=== PATIENT | female | born 1955 | race Caucasian/White ===

== ENCOUNTER 2018-05-03 21:23 | Inpatient (IN) | payer OTHER ==
[2018-05-03] MEDS: FUROSEMIDE 40 MG INJ IV (22:09)
[2018-05-03] MEDS: NITROGLYCERIN 2% 1 GM OINT PKT TD (22:10)
[2018-05-03] MEDS: ASPIRIN 81 MG TAB PO (22:10)
[2018-05-03] MEDS ORDERED: ONDANSETRON 4 MG INJ (22:13)
[2018-05-03 22:16] LABS: ADD MAN DIFF? NO
[2018-05-03 22:22] LABS: BASOPHILS % 0.3 % (0.0-2.0); EOSINOPHILS # 0.1 10^3/ul (0.0-0.5); EOSINOPHILS % 0.4 % (0.0-7.0); HEMATOCRIT 41.7 % (37.0-47.0); HEMOGLOBIN 12.6 g/dl (12.0-16.0); LYMPHOCYTES # 1.6 10^3/ul (0.8-2.9); LYMPHOCYTES % 10.7 % (15.0-51.0); MEAN CORPUSCULAR HEMOGLOBIN 19.9 pg (29.0-33.0); MEAN CORPUSCULAR HGB CONC 30.2 g/dl (32.0-37.0); MEAN CORPUSCULAR VOLUME 65.9 fl (82.0-101.0); MEAN PLATELET VOLUME 10.8 fl (7.4-10.4); MONOCYTE # 0.5 10^3/ul (0.3-0.9); MONOCYTES % 3.3 % (0.0-11.0); NEUTROPHIL # 13.1 10^3/ul (1.6-7.5); NEUTROPHILS % 84.9 % (39.0-77.0); PLATELET COUNT 426 10^3/UL (140-415); RED BLOOD COUNT 6.33 10^6/ul (4.20-5.40); RED CELL DISTRIBUTION WIDTH 17.3 % (11.5-14.5)
[2018-05-03 22:22] LABS: WHITE BLOOD COUNT 15.4 10^3/ul (4.8-10.8)
[2018-05-03 22:38] LABS: ANION GAP 12 (5-13); BLOOD UREA NITROGEN 60 mg/dl (7-20); CARBON DIOXIDE 20 mmol/L (21-31); CHLORIDE 104 mmol/L (97-110); Estimated GFR 30 mL/min (>60); GLUCOSE 321 mg/dl (70-220); SODIUM 136 mmol/L (135-144)
[2018-05-03 22:48] LABS: B-TYPE NATRIURETIC PEPTIDE 4040 PG/ML (0-125)
[2018-05-03 22:59] LABS: POTASSIUM 6.3 mmol/L (3.5-5.1); TROPONIN-I 0.612 ng/ml (0.000-0.120)
[2018-05-03 23:57] LABS: AADO2 Arterial 242.9 mmHg (7.0-24.0); Allen Test ACCEPTAB; Arterial Base Excess -10.3 mmol/L (-3.0-3); Arterial Blood Gas Oxygen Sat 94.1 mmHG (95.0-98.0); Arterial COHb 0.5 % (0.0-3.0); Arterial Fraction of Oxyhgb 93.6 % (93.0-99.0); Arterial HCO3 15.6 mmol/L (22.0-26.0); Arterial MetHb 0 % (0.0-1.5); Blood Gas IEPAP 15/5; MODE MASK - BIPAP; Site Left Radial
[2018-05-04] MEDS: CEFTRIAXONE 1 GM/50 ML (PMX) 50 ML IVPB (00:58)
[2018-05-04] MEDS: CALCIUM GLUCONATE 10% 1 GM in DEXTROSE 5% 100 ML IVPB (01:39)
[2018-05-04] MEDS ORDERED: ACETAMINOPHEN 325 MG TAB PO ×2 (02:30→03:00)
[2018-05-04] MEDS: AZITHROMYCIN 500MG/NS (PMX) 250 ML IV (02:30)
[2018-05-04] MEDS: ONDANSETRON 4 MG INJ IV (02:54)
[2018-05-04] MEDS ORDERED: ENOXAPARIN 40 MG/0.4 ML SYG SC (03:00)
[2018-05-04] MEDS ORDERED: NACL 0.9% 3 ML SYG IV (03:00)
[2018-05-04] MEDS ORDERED: morphine 2 MG INJ IV (03:00)
[2018-05-04] MEDS ORDERED: ONDANSETRON 4 MG INJ IV (03:00)
[2018-05-04] MEDS ORDERED: DOCUSATE SODIUM 100 MG CAP PO (03:00)
[2018-05-04] MEDS ORDERED: NITROGLYCERIN (SL) 0.4 MG TAB SL (03:00)
[2018-05-04] MEDS ORDERED: GLUCOSE GEL 15 GRAM TUBE BUCCAL (03:30)
[2018-05-04] MEDS ORDERED: GLUCOSE GEL 15 GRAM TUBE PO ×2 (03:30)
[2018-05-04] MEDS ORDERED: DEXTROSE 50% 50 ML SYRINGE IV ×2 (03:30)
[2018-05-04] MEDS ORDERED: GLUCAGON 1 MG INJ IM (03:30)
[2018-05-04] MEDS: ALBUTEROL/IPRATROPIUM (NEB) 3 ML AMP HHN ×5 (04:22→20:30)
[2018-05-04] MEDS: IPRATROPIUM (NEB) 0.5 MG/2.5 ML AMP NEB (04:23)
[2018-05-04] MEDS: NA BICARBONATE 8.4% 50 ML SYG IV ×2 (05:27→08:46)
[2018-05-04] MEDS: ENOXAPARIN 80 MG/0.8 ML SYG SC ×2 (05:28→20:26)
[2018-05-04 05:47] LABS: ADD MAN DIFF? NO
[2018-05-04 05:48] LABS: BASOPHILS % 0.2 % (0.0-2.0); EOSINOPHILS % 0.1 % (0.0-7.0); HEMATOCRIT 38.7 % (37.0-47.0); HEMOGLOBIN 11.9 g/dl (12.0-16.0); LYMPHOCYTES # 1.2 10^3/ul (0.8-2.9); LYMPHOCYTES % 6.3 % (15.0-51.0); MEAN CORPUSCULAR HEMOGLOBIN 20.1 pg (29.0-33.0); MEAN CORPUSCULAR HGB CONC 30.7 g/dl (32.0-37.0); MEAN CORPUSCULAR VOLUME 65.4 fl (82.0-101.0); MEAN PLATELET VOLUME 10.9 fl (7.4-10.4); MONOCYTE # 0.5 10^3/ul (0.3-0.9); MONOCYTES % 2.5 % (0.0-11.0); NEUTROPHIL # 17.8 10^3/ul (1.6-7.5); NEUTROPHILS % 90.3 % (39.0-77.0); PLATELET COUNT 400 10^3/UL (140-415); RED BLOOD COUNT 5.92 10^6/ul (4.20-5.40); RED CELL DISTRIBUTION WIDTH 17.1 % (11.5-14.5)
[2018-05-04 05:48] LABS: WHITE BLOOD COUNT 19.6 10^3/ul (4.8-10.8)
[2018-05-04 06:22] LABS: CK INDEX 6.6; CREATINE KINASE 574 IU/L (23-200)
[2018-05-04 06:24] LABS: ALANINE AMINOTRANSFERASE 20 IU/L (13-69); ALBUMIN 3.7 g/dl (3.3-4.9); ALBUMIN/GLOBULIN RATIO 1.12; ALKALINE PHOSPHATASE 74 IU/L (42-121); ANION GAP 10 (5-13); ASPARTATE AMINO TRANSFERASE 89 IU/L (15-46); BILIRUBIN,INDIRECT 0.3 mg/dl (0-1.1); BILIRUBIN,TOTAL 0.3 mg/dl (0.2-1.3); BLOOD UREA NITROGEN 63 mg/dl (7-20); CALCIUM 8.8 mg/dl (8.4-10.2); CARBON DIOXIDE 23 mmol/L (21-31); CHLORIDE 108 mmol/L (97-110); CREATININE 1.69 mg/dl (0.44-1.00); Estimated GFR 30 mL/min (>60); GLUCOSE 259 mg/dl (70-220); SODIUM 141 mmol/L (135-144)
[2018-05-04 07:00] LABS: POTASSIUM 6.1 mmol/L (3.5-5.1)
[2018-05-04 07:25] LABS: LACTIC ACID 1.3 mmol/L (0.5-2.0)
[2018-05-04] MEDS: NA POLYST SULFON 15 GM/60 ML BTL PO (08:00)
[2018-05-04] MEDS: INSULIN ASPART [NOVOLOG] 3 ML PEN SC ×5 (08:00→20:26)
[2018-05-04] MEDS: CLOPIDOGREL 75 MG TAB PO (08:46)
[2018-05-04] MEDS: ASPIRIN 81 MG TAB PO (08:46)
[2018-05-04] MEDS: ATORVASTATIN 80 MG TAB PO (08:46)
[2018-05-04 08:47] LABS: IONIZED CALCIUM 1.2 mmol/L (1.1-1.4)
[2018-05-04] MEDS: METOPROLOL 25 MG TAB PO ×2 (08:54→20:16)
[2018-05-04] MEDS: FUROSEMIDE 40 MG INJ IV ×3 (08:55→18:16)
[2018-05-04] MEDS: FAMOTIDINE 20 MG INJ IV (08:55)
[2018-05-04 11:23] LABS: PLATELET COUNT 408 10^3/UL (140-415)
[2018-05-04 11:44] LABS: INR 0.96; PARTIAL THROMBOPLASTIN TIME 28.6 Sec (23.0-35.0); PROTIME 12.9 Sec (11.9-14.9); THROMBIN TIME 18.1 SEC (13.8-19.1)
[2018-05-04 11:48] LABS: ANION GAP 11 (5-13); BLOOD UREA NITROGEN 64 mg/dl (7-20); CALCIUM 9.2 mg/dl (8.4-10.2); CARBON DIOXIDE 23 mmol/L (21-31); CHLORIDE 108 mmol/L (97-110); CREATINE KINASE 689 IU/L (23-200); CREATININE 1.73 mg/dl (0.44-1.00); Estimated GFR 30 mL/min (>60); GLUCOSE 167 mg/dl (70-220); POTASSIUM 4.9 mmol/L (3.5-5.1); SODIUM 142 mmol/L (135-144)
[2018-05-04 11:48] LABS: D-DIMER 861.76 ng/ml (<460)
[2018-05-04 11:58] LABS: CK INDEX 7.8
[2018-05-04] MEDS ORDERED: NA POLYST SULFON 15 GM/60 ML BTL PO (13:30)
[2018-05-04] MEDS: DIPHENHYDRAMINE 50 MG CAP PO (13:34)
[2018-05-04] MEDS: DIAZEPAM 5 MG TAB PO (13:34)
[2018-05-04] MEDS: INSULIN GLARGINE [LANTus] (100 UNITS/ML) SYG SC (20:20)
[2018-05-04 23:30] LABS: CREATININE,URINE RANDOM 48.52 mg/dl (20-320)
[2018-05-04 23:45] LABS: ADD UMIC YES; UR AMORPHOUS CRYSTAL FEW /HPF (NONE SEEN); UR ASCORBIC ACID NEGATIVE (NEGATIVE); UR BACTERIA FEW /HPF (NONE SEEN); UR BILIRUBIN (Dip) NEGATIVE (NEGATIVE); UR BLOOD (Dip) 3+ mg/dL (NEGATIVE); UR CLARITY SLIGHTLY CLOUDY (CLEAR); UR COLOR YELLOW (YELLOW); UR GLUCOSE (Dip) 1+ mg/dL (NEGATIVE); UR KETONES (Dip) NEGATIVE (NEGATIVE); UR LEUKOCYTE ESTERASE (Dip) NEGATIVE Leu/ul (NEGATIVE); UR MUCUS FEW /HPF (NONE SEEN); UR NITRITE (Dip) NEGATIVE (NEGATIVE); UR RBC > 182 /HPF (0-5); UR TOTAL PROTEIN (Dip) 2+ mg/dl (NEGATIVE); UR UROBILINOGEN (Dip) NEGATIVE (NEGATIVE); UR WBC 2 /HPF (0-5)
[2018-05-05] MEDS: ALBUTEROL/IPRATROPIUM (NEB) 3 ML AMP HHN ×6 (01:05→20:29)
[2018-05-05] MEDS: CEFTRIAXONE 1 GM/50 ML (PMX) 50 ML IVPB (02:09)
[2018-05-05] MEDS: AZITHROMYCIN 500MG/NS (PMX) 250 ML IV (02:09)
[2018-05-05] MEDS: FUROSEMIDE 40 MG INJ IV (05:02)
[2018-05-05 05:19] LABS: ADD MAN DIFF? NO
[2018-05-05 05:26] LABS: ABNORMAL IP MESSAGE 1; BASOPHILS % 0.2 % (0.0-2.0); EOSINOPHILS % 0.1 % (0.0-7.0); HEMATOCRIT 35.7 % (37.0-47.0); HEMOGLOBIN 11.4 g/dl (12.0-16.0); LYMPHOCYTES # 2.8 10^3/ul (0.8-2.9); LYMPHOCYTES % 14.6 % (15.0-51.0); MEAN CORPUSCULAR HEMOGLOBIN 20.2 pg (29.0-33.0); MEAN CORPUSCULAR HGB CONC 31.9 g/dl (32.0-37.0); MEAN CORPUSCULAR VOLUME 63.2 fl (82.0-101.0); MEAN PLATELET VOLUME 10.7 fl (7.4-10.4); MONOCYTE # 1.5 10^3/ul (0.3-0.9); MONOCYTES % 8.1 % (0.0-11.0); NEUTROPHIL # 14.5 10^3/ul (1.6-7.5); NEUTROPHILS % 76.5 % (39.0-77.0); PLATELET COUNT 353 10^3/UL (140-415); RED BLOOD COUNT 5.65 10^6/ul (4.20-5.40); RED CELL DISTRIBUTION WIDTH 15.9 % (11.5-14.5)
[2018-05-05 05:48] LABS: PHOSPHORUS 5.2 mg/dl (2.5-4.9)
[2018-05-05 06:04] LABS: ALANINE AMINOTRANSFERASE 26 IU/L (13-69); ALBUMIN 3.6 g/dl (3.3-4.9); ALKALINE PHOSPHATASE 65 IU/L (42-121); ANION GAP 11 (5-13); ASPARTATE AMINO TRANSFERASE 128 IU/L (15-46); BILIRUBIN,INDIRECT 0.3 mg/dl (0-1.1); BILIRUBIN,TOTAL 0.3 mg/dl (0.2-1.3); BLOOD UREA NITROGEN 63 mg/dl (7-20); CALCIUM 8.9 mg/dl (8.4-10.2); CARBON DIOXIDE 27 mmol/L (21-31); CHLORIDE 104 mmol/L (97-110); CHOL/HDL RATIO 5.3 RATIO; CHOLESTEROL 176 mg/dl (100-200); CREATININE 2.21 mg/dl (0.44-1.00); Estimated GFR 22 mL/min (>60); GLUCOSE 80 mg/dl (70-220); HDL CHOLESTEROL 33 mg/dl (35-98); LDL CHOLESTEROL,CALCULATED 117 mg/dl; MAGNESIUM 2.1 mg/dl (1.7-2.5); POTASSIUM 4.2 mmol/L (3.5-5.1); SODIUM 142 mmol/L (135-144); TOTAL PROTEIN 6.6 g/dl (6.1-8.1); TRIGLYCERIDES 132 mg/dl (0-149)
[2018-05-05 06:12] LABS: POSITIVE DIFF @See below
[2018-05-05] MEDS: INSULIN ASPART [NOVOLOG] 3 ML PEN SC ×4 (07:35→20:57)
[2018-05-05] MEDS: METOPROLOL 25 MG TAB PO ×2 (08:22→15:00)
[2018-05-05] MEDS: ASPIRIN 81 MG TAB PO (08:22)
[2018-05-05] MEDS: FAMOTIDINE 20 MG INJ IV (08:22)
[2018-05-05 09:40] LABS: HEMOGLOBIN A1C 7.6 % (0-5.9)
[2018-05-05 11:21] LABS: CREATINE KINASE 514 IU/L (23-200)
[2018-05-05] MEDS: DEXTROSE 5% 1,000 ML IV (13:00)
[2018-05-05 16:44] LABS: CREATINE KINASE 443 IU/L (23-200)
[2018-05-05 16:58] LABS: CK INDEX 3.9
[2018-05-05 18:27] LABS: CREATININE,URINE RANDOM 83.86 mg/dl (20-320)
[2018-05-05 18:27] LABS: SODIUM,URINE RANDOM 56 mmol/L (30-90)
[2018-05-05 18:50] LABS: ADD UMIC YES; UR AMORPHOUS CRYSTAL MANY /HPF (NONE SEEN); UR ASCORBIC ACID NEGATIVE (NEGATIVE); UR BACTERIA FEW /HPF (NONE SEEN); UR BILIRUBIN (Dip) NEGATIVE (NEGATIVE); UR BLOOD (Dip) 3+ mg/dL (NEGATIVE); UR CLARITY TURBID (CLEAR); UR COLOR YELLOW (YELLOW); UR GLUCOSE (Dip) NEGATIVE (NEGATIVE); UR HYALINE CAST FEW /HPF (NONE SEEN); UR KETONES (Dip) NEGATIVE (NEGATIVE); UR LEUKOCYTE ESTERASE (Dip) 1+ Leu/ul (NEGATIVE); UR MUCUS FEW /HPF (NONE SEEN); UR NITRITE (Dip) NEGATIVE (NEGATIVE); UR RBC > 182 /HPF (0-5); UR SPECIFIC GRAVITY (Dip) 1.013 (1.003-1.030); UR TOTAL PROTEIN (Dip) 2+ mg/dl (NEGATIVE); UR UROBILINOGEN (Dip) NEGATIVE (NEGATIVE); UR WBC 80 /HPF (0-5)
[2018-05-05] MEDS: ATORVASTATIN 80 MG TAB NGT (20:47)
[2018-05-05] MEDS: METOPROLOL 50 MG TAB PO (20:48)
[2018-05-05] MEDS: ENOXAPARIN 80 MG/0.8 ML SYG SC (20:55)
[2018-05-05] MEDS: INSULIN GLARGINE [LANTus] (100 UNITS/ML) SYG SC (20:55)
[2018-05-05] MEDS ORDERED: morphine LIQ (10 MG/5 ML) CUP PO (23:30)
[2018-05-06] MEDS: ALBUTEROL/IPRATROPIUM (NEB) 3 ML AMP HHN ×6 (01:00→21:00)
[2018-05-06] MEDS: AZITHROMYCIN 500MG/NS (PMX) 250 ML IV (03:49)
[2018-05-06] MEDS: CEFTRIAXONE 1 GM/50 ML (PMX) 50 ML IVPB (03:52)
[2018-05-06 05:34] LABS: ADD MAN DIFF? NO
[2018-05-06 05:39] LABS: ABNORMAL IP MESSAGE 1; BASOPHIL # 0.1 10^3/ul (0.0-0.1); BASOPHILS % 0.3 % (0.0-2.0); EOSINOPHILS # 0.1 10^3/ul (0.0-0.5); EOSINOPHILS % 0.6 % (0.0-7.0); HEMATOCRIT 33.7 % (37.0-47.0); HEMOGLOBIN 10.5 g/dl (12.0-16.0); LYMPHOCYTES # 2.1 10^3/ul (0.8-2.9); LYMPHOCYTES % 12.3 % (15.0-51.0); MEAN CORPUSCULAR HEMOGLOBIN 20.2 pg (29.0-33.0); MEAN CORPUSCULAR HGB CONC 31.2 g/dl (32.0-37.0); MEAN CORPUSCULAR VOLUME 64.9 fl (82.0-101.0); MONOCYTE # 1.5 10^3/ul (0.3-0.9); MONOCYTES % 8.9 % (0.0-11.0); NEUTROPHIL # 13.2 10^3/ul (1.6-7.5); NEUTROPHILS % 77.5 % (39.0-77.0); PLATELET COUNT 325 10^3/UL (140-415); RED BLOOD COUNT 5.19 10^6/ul (4.20-5.40); RED CELL DISTRIBUTION WIDTH 15.6 % (11.5-14.5)
[2018-05-06 06:12] LABS: POSITIVE DIFF @See below
[2018-05-06 06:42] LABS: ALANINE AMINOTRANSFERASE 24 IU/L (13-69); ALBUMIN 3.5 g/dl (3.3-4.9); ALKALINE PHOSPHATASE 60 IU/L (42-121); ANION GAP 11 (5-13); ASPARTATE AMINO TRANSFERASE 76 IU/L (15-46); BILIRUBIN,INDIRECT 0.4 mg/dl (0-1.1); BILIRUBIN,TOTAL 0.4 mg/dl (0.2-1.3); BLOOD UREA NITROGEN 59 mg/dl (7-20); CALCIUM 8.6 mg/dl (8.4-10.2); CARBON DIOXIDE 28 mmol/L (21-31); CHLORIDE 100 mmol/L (97-110); CREATININE 1.88 mg/dl (0.44-1.00); Estimated GFR 27 mL/min (>60); GLUCOSE 77 mg/dl (70-220); SODIUM 139 mmol/L (135-144); TOTAL PROTEIN 6.4 g/dl (6.1-8.1)
[2018-05-06 06:51] LABS: CK INDEX 3.6; CREATINE KINASE 278 IU/L (23-200)
[2018-05-06] MEDS: INSULIN ASPART [NOVOLOG] 3 ML PEN SC ×4 (07:35→21:00)
[2018-05-06 08:16] LABS: PHOSPHORUS 4.6 mg/dl (2.5-4.9)
[2018-05-06] MEDS: FUROSEMIDE 20 MG INJ IV ×2 (08:51→16:43)
[2018-05-06] MEDS: ASPIRIN 81 MG TAB PO (08:51)
[2018-05-06] MEDS: FAMOTIDINE 20 MG INJ IV (08:51)
[2018-05-06] MEDS: METOPROLOL 50 MG TAB PO ×2 (08:52→21:23)
[2018-05-06] MEDS ORDERED: FUROSEMIDE 40 MG INJ IV (09:00)
[2018-05-06] MEDS: DEXTROSE 5% 1,000 ML IV ×2 (13:00→23:08)
[2018-05-06] MEDS: ATORVASTATIN 80 MG TAB NGT (21:23)
[2018-05-06] MEDS: INSULIN GLARGINE [LANTus] (100 UNITS/ML) SYG SC (21:40)
[2018-05-06] MEDS: ENOXAPARIN 80 MG/0.8 ML SYG SC (21:41)
[2018-05-07] MEDS: ALBUTEROL/IPRATROPIUM (NEB) 3 ML AMP HHN ×2 (01:00→05:00)
[2018-05-07] MEDS: CEFTRIAXONE 1 GM/50 ML (PMX) 50 ML IVPB (02:41)
[2018-05-07] MEDS: AZITHROMYCIN 500MG/NS (PMX) 250 ML IV (03:55)
[2018-05-07 05:12] LABS: ADD MAN DIFF? NO
[2018-05-07 05:17] LABS: BASOPHIL # 0.1 10^3/ul (0.0-0.1); BASOPHILS % 0.4 % (0.0-2.0); EOSINOPHILS # 0.2 10^3/ul (0.0-0.5); EOSINOPHILS % 1.1 % (0.0-7.0); HEMATOCRIT 35.8 % (37.0-47.0); LYMPHOCYTES # 1.8 10^3/ul (0.8-2.9); LYMPHOCYTES % 11.3 % (15.0-51.0); MEAN CORPUSCULAR HEMOGLOBIN 20.1 pg (29.0-33.0); MEAN CORPUSCULAR HGB CONC 30.7 g/dl (32.0-37.0); MEAN CORPUSCULAR VOLUME 65.6 fl (82.0-101.0); MEAN PLATELET VOLUME 10.9 fl (7.4-10.4); MONOCYTE # 1.2 10^3/ul (0.3-0.9); MONOCYTES % 7.8 % (0.0-11.0); NEUTROPHIL # 12.2 10^3/ul (1.6-7.5); NEUTROPHILS % 78.9 % (39.0-77.0); PLATELET COUNT 332 10^3/UL (140-415); RED BLOOD COUNT 5.46 10^6/ul (4.20-5.40); RED CELL DISTRIBUTION WIDTH 15.1 % (11.5-14.5)
[2018-05-07 05:17] LABS: WHITE BLOOD COUNT 15.5 10^3/ul (4.8-10.8)
[2018-05-07 05:50] LABS: ANION GAP 13 (5-13); BLOOD UREA NITROGEN 58 mg/dl (7-20); CALCIUM 8.5 mg/dl (8.4-10.2); CARBON DIOXIDE 26 mmol/L (21-31); CHLORIDE 101 mmol/L (97-110); CREATININE 1.85 mg/dl (0.44-1.00); Estimated GFR 27 mL/min (>60); GLUCOSE 143 mg/dl (70-220); PHOSPHORUS 4.6 mg/dl (2.5-4.9); POTASSIUM 3.9 mmol/L (3.5-5.1); SODIUM 140 mmol/L (135-144)
[2018-05-07] MEDS ORDERED: FAMOTIDINE 20 MG TAB PO (09:00)
[2018-05-07 16:56] LABS: CREATININE, RANDOM URINE 87 mg/dL (20-275); MICROALBUMIN/CREATININE RATIO 1057 (<30)
[2018-05-08 13:51] LABS: PROCALCITONIN <0.10 ng/mL (<0.10)
== END 2018-05-07 05:50 | disposition short-term general hospital (02) | DRG 280 ==
LOC: E/R 21:23 → 6WM 05-04 07:12 → ICU 05-04 11:57
PROC: 5A09457 Assistance with Respiratory Ventilation, 24-96 Consecutive Hours, Continuous Positive Airway Pressure (ICD-10-PCS; principal; 2018-05-04)
DX: I21.4 Non-ST elevation (NSTEMI) myocardial infarction (principal); I50.23 Acute on chronic systolic (congestive) heart failure; J18.9 Pneumonia, unspecified organism; J96.01 Acute respiratory failure with hypoxia; N17.9 Acute kidney failure, unspecified; E87.2 Acidosis; I13.0 Hypertensive heart and chronic kidney disease with heart failure and stage 1 through stage 4 chronic kidney disease, or unspecified chronic kidney disease; I42.9 Cardiomyopathy, unspecified; I11.0 Hypertensive heart disease with heart failure; E11.22 Type 2 diabetes mellitus with diabetic chronic kidney disease; E87.5 Hyperkalemia; N18.9 Chronic kidney disease, unspecified; E78.5 Hyperlipidemia, unspecified; E87.6 Hypokalemia; Z79.4 Long term (current) use of insulin
CPT/HCPCS: 36415; 36600; 71045; 76775; 80048; 80053; 80061; 81001; 81003; 82043; 82330; 82550; 82553; 82803; 82962; 83036; 83605; 83735; 83880; 84100; 84145; 84155; 84300; 84443; 84484; 85025; 85049; 85378; 85610; 85670; 85730; 87040; 87081; 87400; 93005; 93306; 93308; 94640; 94660; 94664; 96365; 96367; 96375; 99291-25